=== PATIENT | female | born 1965 | race Caucasian/White ===

== ENCOUNTER 2020-01-01 11:31 | Emergency (ER) | payer BC ==
[~2020-01-01] VITALS: Ht 160 cm; Wt 72.7 kg
[~2020-01-01 11:31] MED LIST: HYDR-4383 PO
--- NOTE | 2020-01-01 11:55 | NUR ---
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
[2020-01-01] MEDS ORDERED: ketorolac trometh. 30mg/ml inj. IM ONE (12:10)
[2020-01-01] MEDS ORDERED: IBUP-1984 PO (12:14)
[2020-01-01 12:27] VITALS: BP 125/81
== END 2020-01-01 12:28 | disposition home or self-care (01) ==
LOC: ER 11:32
DX: M79.604 Pain in right leg (principal); Z79.899 Other long term (current) drug therapy; X50.9XXA Other and unspecified overexertion or strenuous movements or postures, initial encounter; Y93.89 Activity, other specified; Y92.89 Other specified places as the place of occurrence of the external cause; Y99.8 Other external cause status
CPT/HCPCS: 96372; 99283; J1885